=== PATIENT | female | born 1980 | race African-American/Black ===

== ENCOUNTER 2018-05-27 08:42 | Inpatient (IN) | payer MEDICAID ==
[~2018-05-27] VITALS: Ht 172.7 cm; Wt 98.9 kg
[2018-05-27 08:50] VITALS: Ht 172.7 cm; Wt 98.9 kg
[2018-05-27] MEDS ORDERED: PREN-93 PO (08:52)
--- NOTE | 2018-05-27 10:18 | HP ---
Date/Time of Note Date/Time of Note DATE: 05/27/18 TIME: 10:16 OB - History Hx of Present Free Text/Dictation at 40 weeks for induction Care: Good Care Ultrasounds: Normal mid trimester US Obstetrical Complications: None Medical Complications: None Past Family/Social History * Past Medical, Surgical, Family and Obstetric Histories reviewed from chart. OB Admission Exam Physical Exam HEENT: WNL Heart: Rhythm Normal Lungs: Clear, Equal Abdomen: WNL Extremities: Normal Reflexes: Normal Cervical Dilatation: 2cm Effacement: 0% Station: Ballotable Membranes: Ruptured Amniotic Fluid: Clear Heart Rate: 130's Accelerations: Accelerations Present Decelerations: No Decelerations Contractions on Admission: None OB Assessment/Plan Reason for admission: induction of labor Plan: Induction Induction Method: per Pitocin Protocol SUKH RABAGO MD May 27, 2018 10:18
[2018-05-27] MEDS ORDERED: OXYTOCIN 30 UNITS/LR 500 ML IV SCH ×4 (11:00→22:38)
[2018-05-27] MEDS ORDERED: LIDOCAINE 1% (MPF) 30 ML INJ INJ PRN (11:00)
[2018-05-27] MEDS ORDERED: METHYLERGONOVINE 0.2 MG INJ IM PRN ×2 (11:00→23:00)
[2018-05-27] MEDS ORDERED: MISOPROSTOL 200 MCG TAB PR PRN ×2 (11:00→23:00)
[2018-05-27] MEDS ORDERED: OXYTOCIN 30 UNITS/LR 500 ML IV PRN ×2 (11:00→23:00)
[2018-05-27] MEDS ORDERED: CARBOPROST 250 MCG INJ IM PRN ×2 (11:00→23:00)
[2018-05-27] MEDS ORDERED: LACTATED RINGER'S 1,000 ML IV PRN (11:17)
[2018-05-27] MEDS ORDERED: IBUPROFEN 600 MG TAB PO PRN (11:30)
[2018-05-27] MEDS ORDERED: MINERAL OIL LIGHT 10 ML VIAL TOP ONE (11:30)
[2018-05-27] MEDS: LACTATED RINGER'S 1,000 ML IV SCH ×2 (12:58→18:19)
[2018-05-27] MEDS ORDERED: FENTAnyl 2MCG/ML-ROPIV 0.2% 100 ML ONE (14:53)
--- NOTE | 2018-05-27 14:55 | PREAC ---
Date/Time of Note Date/Time of Note DATE: 05/27/18 TIME: 14:54 Anesthesia Eval and Record Evaluation Time Pre-Procedure Interview DATE: 05/27/18 TIME: 14:54 Age 38 Sex female NPO: 8 hrs Preoperative diagnosis iup at 40 weeks Planned procedure labor epidural Past Medical History Past Medical History: None Surgery & Anesthesia Issues No known issue Meds Anticoagulation: No Beta Krishna within 24 hr: No Reason Beta Krishna not given: Pt. not on B-Krishna Reported Medications Vit No.124/Iron/FA ( Vitamin Tablet) 1 Each Tablet, 1 EACH PO, TAB 05/27/18 Current Medications Lidocaine (Xylocaine 1% (Mpf)) 30 ml ONCE PRN INJ .EPISIOTOMY; Start 05/27/18 at 11:00 Oxytocin/Lactated Ringer's 500 ml @ 500 mls/hr ONCE POST IV ; Start 05/27/18 at 11:00 Oxytocin/Lactated Ringer's 500 ml @ 125 mls/hr POST IV ; Start 05/27/18 at 11:00 Oxytocin/Lactated Ringer's 500 ml @ 0 mls/hr ONCE PRN IV .VAGINAL BLEEDING; Start 05/27/18 at 11:00 Methylergonovine Maleate (Methergine) 0.2 mg ONCE PRN IM .VAGINAL BLEEDING; S tart 05/27/18 at 11:00 Carboprost Tromethamine (Hemabate) 250 mcg ONCE PRN IM .VAGINAL BLEEDING; Start 05/27/18 at 11:00 Misoprostol (Cytotec) 1,000 mcg ONCE PRN LA .VAGINAL BLEEDING; Start 05/27/18 at 11:00 Oxytocin/Lactated Ringer's 500 ml @ 0 mls/hr FOR INDUCTION IV Last administered on 05/27/18at 10:56; Admin Dose 1 MLS/HR; Start 05/27/18 at 11:00 Ibuprofen (Motrin) 600 mg ONCE PRN PO .PAIN 1-5; Start 05/27/18 at 11:30 Lactated Ringer's 1,000 ml @ 2,000 mls/hr Q30M PRN IV .ANESTHESIA; Start 9 at 11:17 Lactated Ringer's 1,000 ml @ 125 mls/hr Q8H IV Last administered on 05/27/18at 12:58; Admin Dose 125 MLS/HR; Start 05/27/18 at 13:00 Meds reviewed: Yes Allergies Coded Allergies: No Known Allergy (Unverified , 05/27/18) Allergies Reviewed: Yes Labs/Studies Labs Reviewed: Reviewed by anesthesiologist Result Diagram: 05/27/18 1012 Laboratory Tests 05/27/18 10:12 Blood Bank Test 05/27/18 10:12 Antibody Screen NEGATIVE Blood Type A POSITIVE Rh Immune Globulin Candidate NO test: Positive Pre-procedure Exam Airway: Adequate mouth opening, Adequate thyromental dist Mallampati: Mallampati I Teeth: Normal Lung: Normal Heart: Normal ASA Physical Status ASA physical status: 2 Emergency: None Planned Anesthetic Neuraxial: Epidural Planned Pain Management Parenteral pain med Pre-operative Attestations Prior to commencing anesthesia and surgery, the patient was re-evaluated, there was verification of: *The patient's identity *The results of appropriate recent lab work and preoperative vital signs *The above evaluation not changing prior to induction *Anesthetic plan, risk benefits, alternative and complications discussed with patient/family; questions answered; patient/family understands, accepts and wishes to proceed. CASANDRA ENG May 27, 2018 14:55
[2018-05-27] MEDS ORDERED: FENTAnyl 2MCG/ML-ROPIV 0.2% 100 ML BAG EPI SCH (15:00)
[2018-05-27] MEDS ORDERED: ONDANSETRON 4 MG INJ IV PRN (15:00)
[2018-05-27] MEDS ORDERED: NALOXONE (0.4 MG/ML) INJ IV PRN (15:00)
[2018-05-27] MEDS ORDERED: DIPHENHYDRAMINE 50 MG INJ IV PRN (15:00)
--- NOTE | 2018-05-27 15:50 | PAC ---
Date/Time of Note Date/Time of Note DATE: 05/27/18 TIME: 15:49 Post-Anesthesia Notes Post-Anesthesia Note Last documented vital signs temp 98.1 bp 123/78 p 78 r 16 Activity: WNL Respiratory function: WNL Cardiovascular function: WNL Mental status: Baseline Pain reasonably controlled: Yes Hydration appropriate: Yes Nausea/Vomiting absent: Yes CASANDRA ENG May 27, 2018 15:50
[2018-05-27] MEDS ORDERED: DEXTROSE 5%-LR 1,000 ML IV SCH (16:00)
--- NOTE | 2018-05-27 19:44 | LDN ---
Date/Time of Note Date/Time of Note DATE: 05/27/18 TIME: 19:43 Delivery Summary Weeks of Gestation 40 Placenta Delivered: Spontaneously Meconium: Light Episiotomy: No Perineal laceration: 1 Anesthesia type: Epidural Estimated blood loss: 300 Sponge & Needle done & correct: Yes All needle counts correct: Yes Any foreign bodies felt in the: No SUKH RABAGO MD May 27, 2018 19:43
[2018-05-27 22:25] VITALS: BP 121/65; PULSE 76; RESP 18
[2018-05-27] MEDS ORDERED: LACTATED RINGER'S 1,000 ML IV* SCH (22:38)
[2018-05-27] MEDS ORDERED: MAGNESIUM HYDROXIDE 30ML CUP PO PRN (23:00)
[2018-05-27] MEDS ORDERED: LANOLIN HPA 1 PKT TOP PRN (23:00)
[2018-05-27] MEDS ORDERED: ZOLPIDEM 5 MG TAB PO PRN (23:00)
[2018-05-27] MEDS ORDERED: DIPHENHYDRAMINE 25 MG CAP PO PRN (23:00)
[2018-05-27] MEDS ORDERED: HYDROCODONE/APAP (5/325) TAB PO PRN (23:00)
[2018-05-27] MEDS ORDERED: WITCH HAZEL/GLYCERIN PAD PR PRN (23:00)
[2018-05-27] MEDS ORDERED: SENNA/DOCUSATE NA (8.6MG/50MG) TAB PO PRN (23:00)
[2018-05-27] MEDS ORDERED: BENZOCAINE 20% 56 ML SPRAY TOP PRN (23:00)
[2018-05-27] MEDS ORDERED: ACETAMINOPHEN 325 MG TAB PO PRN (23:00)
[2018-05-28 03:50] VITALS: BP 114/62; PULSE 71; RESP 18
[2018-05-28] MEDS: IBUPROFEN 800 MG TAB PO SCH ×5 (05:42→23:32)
[2018-05-28 08:10] VITALS: BP 124/72; PULSE 78; RESP 16
[2018-05-28 12:00] VITALS: BP 124/84; PULSE 71; RESP 16
[2018-05-28 15:00] VITALS: BP 110/67; PULSE 85; RESP 18
--- NOTE | 2018-05-28 18:17 | PN ---
Date/Time of Note Date/Time of Note DATE: 05/28/18 TIME: 18:15 OB Subjective Subjective Subjective PPD# 1 Patient is doing well. She denies nausea, vomiting, shortness of breath, chest pain, headache. She has been ambulating without difficulty, tolerating regular diet. Pain is well controlled on current medications OB Objective Objective Objective VS - Last 72 Hours, by Label Date Temp Pulse Resp B/P (MAP) Pulse Ox O2 O2 Flow FiO2 Time Delivery Rate 05/28/18 98.5 85 18 110/67 15:00 (81) 05/28/18 98.6 71 16 124/84 12:00 (97) 05/28/18 98.6 78 16 124/72 Room Air 08:10 (89) 05/28/18 99.0 71 18 114/62 Room Air 03:50 (79) 05/27/18 99.1 76 18 121/65 Room Air 22:25 (83) General: AAO X 3, comfortable, NAD, appropriate mood and affect. ABD: +BS. Soft, non-tender. Uterus 2 cm below umbilicus Flank: No CVA tenderness (B/L) LE: Mild edema. No clubbing, cyanosis, thigh or calf tenderness (B/L). Homans 'sign is negative OB Assessment/Plan Other plan: 38 years old 2 para 2001 s/p normal vaginal delivery. PPD#1 - AF, VSS - Contraception methods with R/B/A/FR discussed - Continue care - Discharge home tomorrow - Rx and instruction given - Follow up in 2 and 6 weeks at clinic ANNMARIE KRISHNAN May 28, 2018 18:17
--- NOTE | 2018-05-28 18:18 | DS ---
Date/Time of Note Date/Time of Note DATE: 05/28/18 TIME: 18:17 Obstetrical Discharge Record Final Diagnosis Final Diagnosis: Term delivered Other Final Diagnosis 38 years old 2 para 2002 s/p normal vaginal delivery. PPD#1. course is unremarkable. She is ambulating and tolerating regular diet. She is voiding without difficulty. Pain is controlled on current medication. - AF, VSS - Contraception methods with R/B/A/FR discussed - Continue care - Discharge home tomorrow - Rx and instruction given - Follow up in 2 and 6 weeks at clinic Condition on Discharge Physical Assessment Voiding: Yes Bowel Movement: Yes Breast: Soft, non-tender Fundus: Firm Calf Tenderness: No Patient Condition: Stable ANNMARIE KRISHNAN May 28, 2018 18:18
[2018-05-28 20:00] VITALS: BP 115/64; PULSE 75; RESP 17
[2018-05-29 03:45] VITALS: BP 117/69; PULSE 75; RESP 17
[2018-05-29] MEDS: IBUPROFEN 800 MG TAB PO SCH ×2 (05:24→12:22)
[2018-05-29 08:00] VITALS: BP 129/72; PULSE 81; RESP 16
[2018-05-29] MEDS ORDERED: DIPHTH/TET/ACEL PERTUSS (ADULT) 0.5 ML VIAL IM* ONE (09:00)
[2018-05-29] MEDS ORDERED: MEASLES,MUMPS,RUBELLA VACCINE INJ SC* ONE (09:00)
[2018-05-29] MEDS ORDERED: VARICELLA VACCINE LIVE/PF 1,350 UNIT/0.5 ML ML SC* ONE (09:00)
--- NOTE | 2018-05-29 12:12 | PN ---
Date/Time of Note Date/Time of Note DATE: 05/29/18 TIME: 12:10 OB Subjective Subjective Subjective Ports decreased vaginal bleeding. Denies any dizziness or lightheadedness. Complains of swelling legs more in the right and left. Denies any pain. Ambulating. Denies any symptoms. OB Objective Objective Objective General appearance: Alert and oriented x4 does not appear to be in any acute distress Abdomen: Soft, fundus firm nontender palpable below the umbilicus Extremities, no cord palpable. There is a swelling in the ankle more in the right side than left side. Negative Homans sign Breast: No evidence of engorgement or mastitis VS - Last 72 Hours, by Label Date Temp Pulse Resp B/P (MAP) Pulse Ox O2 O2 Flow FiO2 Time Delivery Rate 05/29/18 98.4 81 16 129/72 Room Air 08:00 (91) 05/29/18 98.1 75 17 117/69 Room Air 03:45 (85) 05/28/18 99.1 75 17 115/64 Room Air 20:00 (81) 05/28/18 98.5 85 18 110/67 15:00 (81) 05/28/18 98.6 71 16 124/84 12:00 (97) 05/28/18 98.6 78 16 124/72 Room Air 08:10 (89) 05/28/18 99.0 71 18 114/62 Room Air 03:50 (79) 05/27/18 99.1 76 18 121/65 Room Air 22:25 (83) CBC & BMP 05/27/18 10:12 05/28/18 08:00 OB Assessment/Plan Other Assessment: day #2 Status post vaginal delivery Swelling of the lower extremity more than the right and left side, asymmetric Discussed regarding Doppler of the right lower extremity, patient at risk for DVT Follow-up with the results of Doppler if normal can be discharged home with a follow-up at 6 weeks for visit or sooner as needed DANIEL FAGAN MD May 29, 2018 12:12
[2018-05-29 16:00] VITALS: BP 115/70; PULSE 73; RESP 18
--- NOTE | 2018-05-30 18:12 | DELSUM ---
Delivery Summary A-C Datetime Report Generated by CPN: 05/30/2018 18:12 DELIVERY PERSONNEL Healthcare Translator: Sebunnya, Phoebe MATERNAL INFORMATION Delivery Anesthesia: Epidural Medications in Delivery: LR 500ML PITOCIN 30 UNITS Delivery QBL (ml): 300 Placenta Cultured: TO PATHOLOGY Maternal Complications: Other LABOR SUMMARY EDC: 05/25/2018 00:00 No. Babies in Womb: 1 Attempted: No Labor Anesthesia: Epidural LABOR INFORMATION Reason for Induction: Not Applicable Onset of Labor: 05/27/2018 10:29 Complete Dilatation: 05/27/2018 19:21 Oxytocin: Induction Group B Beta Strep: Negative Antibiotics # of Doses: 0 Steroids Given: None Reason Steroids Not Administered: Not Applicable MEMBRANES Membranes Rupture Method: Artificial Rupture of Membranes: 05/27/2018 10:04 Length of Rupture (hr): 9.52 Amniotic Fluid Color: Light Meconium Amniotic Fluid Amount: Large Amniotic Fluid Odor: Normal STAGES OF LABOR Stage 1 hr: 8 Stage 1 min: 52 Stage 2 hr: 0 Stage 2 min: 14 Stage 3 hr: 0 Stage 3 min: 6 Total Time in Labor hr: 9 Total Time in Labor min: 12 VAGINAL DELIVERY Episiotomy: None Laceration Extension: First Degree Laceration Type: Perineal Laceration Repair: Yes Initial Vag Sponge Count: 10 Final Vag Sponge Count: 10 Initial Vag Sharps Count: 2 Final Vag Sharps Count: 2 Sponge Count Correct: Yes; Vaginal Sweep Performed Sharps Count Correct: Yes BABY A INFORMATION Delivery Date/Time: 05/27/2018 19:35 Method of Delivery: Vaginal Born in Route : No : N/A Forceps: N/A Vacuum Extraction: N/A Shoulder Dystocia : No SHOULDER DYSTOCIA BABY A Delivery Date/Time: 05/27/2018 19:35 PRESENTATION/POSITION BABY A Presentation: Cephalic Cephalic Presentation: Vertex Vertex Position: Left Occipital Anterior Breech Presentation: N/A PLACENTA INFORMATION BABY A Placenta Delivery Time : 05/27/2018 19:41 Placenta Method of Delivery: Spontaneous Placenta Status: Delivered SCORES BABY A Heart Rate 1 min: >100 bpm Resp Effort 1 min: Slow, Irregular Reflex Irritability 1 min: Grimace Muscle Tone 1 min: Some Flexion of Extrem Color 1 min: Blue/Pale Resuscitation Effort 1 min: Tactile Stimulation; Oxygen SCORE 1 MIN: 5 Heart Rate 5 min: >100 bpm Resp Effort 5 min: Good Cry Reflex Irritability 5 min: Cough/Sneeze/Pulls Away Muscle Tone 5 min: Active Motion Color 5 min: Body [place], Extremit Blue Resuscitation Effort 5 min: Tactile Stimulation SCORE 5 MIN: 9 Heart Rate 10 min: >100 bpm Resp Effort 10 min: Good Cry Reflex Irritability 10 min: Cough/Sneeze/Pulls Away Muscle Tone 10 min: Active Motion Color 10 min: Body [place], Extremit Blue Resuscitation Effort 10 min: Tactile Stimulation SCORE 10 MIN: 9 INFANT INFORMATION BABY A Gestational Age at Delivery: 40.2 Gestational Status: Full Term- 39- 40.6 Weeks Outcome : Liveborn Condition : Stable Sex: Female IDENTIFICATION/MEDS BABY A ID Band Number: [id number] ID Band Location: Right Leg; Left Arm Sensor Applied: Yes Sensor Number: [id number] Sensor Location : Cord Clamp Vitamin K Given : Not Given Erythromycin Given: Not Given WEIGHT/LENGTH BABY A Infant Birthweight (gm): 3650 Weight (lb): 8 Infant Weight (oz): 1 Infant Length (in): 20.50 Infant Length (cm): 52.07 CORD INFORMATION BABY A No. Cord Vessels: 3 Nuchal Cord : Around Neck x2, Tight Nuchal Cord- Other: 0 True Knot: 0 Cord Blood Taken: Yes Banking/Donate Info: NO Infant Suction: Mouth; Nose ASSESSMENT BABY A Infant Complications: Multiple Variable Decels; Meconium Physical Findings at Delivery: Within Normal Limits Infant Respirations: Appears Normal Dianetic Counselor/ALS Called : No Infant Care By: shanelle topeet Transferred To: Remains with Mother
== END 2018-05-29 18:12 | disposition home or self-care (01) | DRG 807 ==
LOC: OBT 08:42 → L-D 08:42 → OBT 08:56 → L-D 20:02 → PP1 22:11
PROVIDERS: ADMIT Obstetrics & Gynecology; ATTEND Obstetrics & Gynecology
PROC: 10E0XZZ Delivery of Products of Conception, External Approach (ICD-10-PCS; principal; 2018-05-27)
PROC: 0HQ9XZZ Repair Perineum Skin, External Approach (ICD-10-PCS; 2018-05-27)
DX: O77.0 Labor and delivery complicated by meconium in amniotic fluid (principal); Z37.0 Single live birth; O70.9 Perineal laceration during delivery, unspecified; R22.43 Localized swelling, mass and lump, lower limb, bilateral; Z3A.40 40 weeks gestation of pregnancy
CPT/HCPCS: 76816; 85025; 85610; 85730; 86592; 86850; 86900; 86901; 87340; 88307; 90716; 93971; 99464; G0463; J2590; J3010; J7120; J7121